=== PATIENT | male | born 1940 | race Native Hawaiian/Other Pacific Islander ===

== ENCOUNTER 2016-03-05 15:04 | Outpatient (CLI) | payer OTHER, MEDICARE ==
[~2016-03-05 15:04] MED LIST: ALLO300T23 PO; ASPIR-8181 MG PO; CARV12.5 PO; CLON0.5T36 PO; DIGOXIN0.25 MG PO; FURO40TA93 PO; KLOR-CON M2020 MEQ PO; LISI5TAB10 PO; LORTAB 7.5-3251 TAB PO; MAG OXIDE400 M2 PO; METO5TAB38 PO; MIRAPEX0.25 MG OR; MIRAPEX1 MG PO; PANT40TA PO; TEMA15CA19 PO; TRAM50TA PO; VICODIN ES1 TA1 PO; VIT D GUMMIE400 UNIT OR; WARF1TAB7 PO; WARF2TAB7 PO; ZANTAC 75 PO
== END 2016-03-05 23:01 | disposition home or self-care (01) ==
LOC: LAB 15:04
DX: N39.0 Urinary tract infection, site not specified (principal)
CPT/HCPCS: 81000; 87088

== ENCOUNTER 2016-05-09 12:43 | Outpatient (CLI) | payer OTHER, MEDICARE | END 2016-05-09 21:06 | disposition home or self-care (01) | LOC: LAB 12:43 | DX: N18.6 End stage renal disease (principal) | CPT/HCPCS: 84132; 85610 ==

== ENCOUNTER 2016-07-05 14:57 | Outpatient (CLI) | payer OTHER, MEDICARE | END 2016-07-05 16:00 | disposition home or self-care (01) | LOC: LAB 14:57 | DX: D64.89 Other specified anemias (principal); R73.09 Other abnormal glucose | CPT/HCPCS: 83036 ==

== ENCOUNTER 2016-07-09 12:58 | Outpatient (CLI) | payer OTHER, MEDICARE | END 2016-07-09 13:45 | disposition home or self-care (01) | LOC: LAB 12:58 | DX: D64.89 Other specified anemias (principal) | CPT/HCPCS: 85014; 85018 ==

== ENCOUNTER 2016-12-03 09:03 | Outpatient (CLI) | payer OTHER, MEDICARE | END 2016-12-03 10:05 | disposition home or self-care (01) | LOC: RAD 09:03 | DX: J44.1 Chronic obstructive pulmonary disease with (acute) exacerbation (principal) ==

== ENCOUNTER 2016-12-06 13:04 | Observation (INO) | payer OTHER, MEDICARE ==
[~2016-12-06] VITALS: Ht 172.7 cm; Wt 99.4 kg
[2016-12-06 13:11] VITALS: BP 109/63; TEMP 98.2
[2016-12-06 14:00] LABS: PLATELET COUNT 148 K/uL (142-355)
[2016-12-06 14:13] LABS: POTASSIUM 4.5 mmol/L (3.6-5.2)
[2016-12-06 14:19] LABS: PARTIAL THROMBOPLASTIN TIME 21.4 SECONDS (24.5-33.6)
[2016-12-06] MEDS ORDERED: FURO20TA67 PO (14:25)
[2016-12-06] MEDS ORDERED: WARF2TAB7 PO (14:25)
[2016-12-06] MEDS ORDERED: XYZAL5 MG OR (14:26)
[2016-12-06] MEDS ORDERED: WARF1TAB7 PO (14:26)
[2016-12-06] MEDS ORDERED: CALC ACETATE668 MG OR (14:27)
[2016-12-06] MEDS ORDERED: CALCIUM 604 OR (14:27)
[2016-12-06 20:00] VITALS: BP 136/76; TEMP 97.4
[2016-12-06 20:14] VITALS: BP 102/52; TEMP 98; Ht 172.7 cm; Wt 99.4 kg
[2016-12-07 00:01] VITALS: BP 105/60; TEMP 97.8
[2016-12-07 04:00] VITALS: BP 100/55; TEMP 97.7
[2016-12-07 08:00] VITALS: BP 112/47; TEMP 99
== END 2016-12-07 09:19 | disposition home or self-care (01) ==
LOC: ED 13:04 → MED/SURG 16:00
DX: R07.89 Other chest pain (principal); I12.0 Hypertensive chronic kidney disease with stage 5 chronic kidney disease or end stage renal disease; N18.6 End stage renal disease; R06.02 Shortness of breath; I25.2 Old myocardial infarction
CPT/HCPCS: 36415; 80053; 82550; 83880; 84484; 85027; 85610; 85730; 93005; 94760; 96372; 96374; 99220; 99284; G0378; J1644; J1940; J2930

== ENCOUNTER 2016-12-07 15:06 | Outpatient (CLI) | payer OTHER, MEDICARE ==
[~2016-12-07 15:06] MED LIST changes: +CALC ACETATE668 MG OR; +CALCIUM 604 OR; +FURO20TA67 PO; +XYZAL5 MG OR
== END 2016-12-07 19:20 | disposition home or self-care (01) ==
LOC: LAB 15:06
DX: I50.9 Heart failure, unspecified (principal); R79.89 Other specified abnormal findings of blood chemistry
CPT/HCPCS: 83880

== ENCOUNTER 2016-12-11 16:17 | Inpatient (IN) | payer OTHER, MEDICARE ==
[2016-12-11] VITALS (10 sets, daily range): BP systolic 99–127; BP diastolic 43–72; TEMP 97.9–98; Ht 172.7 cm; Wt 95.7 kg
[~2016-12-11] VITALS: Ht 172.7 cm; Wt 95.7 kg
[2016-12-11 17:13] LABS: PLATELET COUNT 148 K/uL (142-355)
[2016-12-11 18:08] LABS: POTASSIUM 4.5 mmol/L (3.6-5.2)
[2016-12-11] MEDS ORDERED: OYSTER-CAL500 MG OR (18:37)
[2016-12-12] VITALS (31 sets, daily range): BP systolic 91–133; BP diastolic 42–80; TEMP 97.4–98
[2016-12-12 05:49] LABS: PARTIAL THROMBOPLASTIN TIME 20.6 SECONDS (24.5-33.6)
[2016-12-12 15:29] LABS: PLATELET COUNT 106 K/uL (142-355)
[2016-12-13 00:02] VITALS: BP 100/51; TEMP 98.7
[2016-12-13 01:00] VITALS: BP 93/62
[2016-12-13 02:00] VITALS: BP 100/57; BP 108/57
[2016-12-13 02:19] VITALS: BP 101/57
== END 2016-12-13 02:30 | disposition short-term general hospital (02) | DRG 190 ==
LOC: ED 16:17 → ICU 18:23
PROVIDERS: Family Medicine; ADMIT Specialist
PROC: 5A1D70Z Performance of Urinary Filtration, Intermittent, Less than 6 Hours Per Day (ICD-10-PCS; principal; 2016-12-12)
DX: J44.1 Chronic obstructive pulmonary disease with (acute) exacerbation (principal); N18.6 End stage renal disease; I12.0 Hypertensive chronic kidney disease with stage 5 chronic kidney disease or end stage renal disease; R07.89 Other chest pain; G20 Parkinson's disease; L89.312 Pressure ulcer of right buttock, stage 2; Z89.511 Acquired absence of right leg below knee
CPT/HCPCS: 36415; 36591; 36600; 80048; 80053; 82550; 82553; 82805; 83605; 83735; 83880; 84100; 84484; 85027; 85379; 85610; 85730; 87040; 93005; 94640; 94664; 94760; 96374; 96375; 99284; J1644; J1940; J2930; J3490

== ENCOUNTER 2017-02-05 09:31 | Emergency (ER) | payer OTHER, MEDICARE ==
[~2017-02-05] VITALS: Ht 172.7 cm; Wt 99.8 kg
[~2017-02-05 09:31] MED LIST changes: +OYSTER-CAL500 MG OR
[2017-02-05 10:13] LABS: PLATELET COUNT 159 K/uL (142-355)
[2017-02-05 10:23] LABS: POTASSIUM 5.4 mmol/L (3.6-5.2)
[2017-02-05 11:15] VITALS: BP 130/74; TEMP 97.8
== END 2017-02-05 11:37 | disposition home or self-care (01) ==
LOC: ED 09:31
PROVIDERS: Emergency Medicine
DX: N18.5 Chronic kidney disease, stage 5 (principal); Z99.2 Dependence on renal dialysis; E87.79 Other fluid overload; E87.0 Hyperosmolality and hypernatremia; E87.5 Hyperkalemia; R06.02 Shortness of breath
CPT/HCPCS: 36415; 80048; 83880; 85027; 87804; 99283

== ENCOUNTER → 2017-02-07 08:08 | Outpatient (CLI) | payer OTHER, MEDICARE | END | disposition E | LOC: AMB 08:08 | DX: I46.9 Cardiac arrest, cause unspecified (principal) ==